=== PATIENT | female | born 1970 | race Caucasian/White ===

== ENCOUNTER 2017-02-01 18:21 | Emergency (ER) | payer OTHER ==
[~2017-02-01] VITALS: Ht 157.4 cm; Wt 141.1 kg
[~2017-02-01 18:21] MED LIST: AMOXICILLIN500 MG PO; ANTIVERT25 MG PO; AUGMENTIN 875 M1 TA1 PO; CIPRO500 MG PO; CLARITIN10 MG PO; CYCLOBENZAPRINE10 MG PO; DARVOCET N 1001 TAB PO; DAYPRO600 M1 PO; DIFLUCAN150 MG PO; FLEXERIL10 MG PO; HYDROCODONE BIT1 T11 PO; K + POTASSIUM20 MEQ PO; K-Dur 20MEQ20 MEQ PO; LASIX20 MG PO; LIPITOR10 MG PO; MACROBID100 M1 PO; MOTRIN600 MG PO; MOTRIN800 MG PO; Motrin,Rufen800 MG PO; NAPROSYN500 MG PO; NASONEX0.05 MG/AC NS; NKHM; PRILOSEC10 M1 PO; ROBAXIN750 MG PO; VICODIN 5/500 505 MG PO; VICODIN ES 7501 TAB PO; ZITHROMAX Z PA250 MG PO; Zofran4 MG PO
[2017-02-01] MEDS ORDERED: VITAMIN D350000 UNIT PO (18:28)
[2017-02-01] MEDS ORDERED: LISINOPRIL10 M1 PO (18:28)
[2017-02-01] MEDS ORDERED: ROBITUSSIN AC 110 ML PO (19:48)
[2017-02-01] MEDS ORDERED: ZITHROMAX250 MG PO ×2 (19:49→20:10)
== END 2017-02-01 20:04 | disposition home or self-care (01) ==
LOC: ED 18:21
DX: J06.9 Acute upper respiratory infection, unspecified (principal); Z91.040 Latex allergy status

== ENCOUNTER 2017-06-11 23:52 | Emergency (ER) | payer OTHER ==
[~2017-06-11] VITALS: Ht 157.4 cm; Wt 141.1 kg
[~2017-06-11 23:52] MED LIST changes: +LISINOPRIL10 M1 PO; +ROBITUSSIN AC 110 ML PO; +VITAMIN D350000 UNIT PO; +ZITHROMAX250 MG PO
[2017-06-12 00:39] LABS: BILIRUBIN NEGATIVE (NEGATIVE); BLOOD NEGATIVE (NEGATIVE); CLARITY SL CLOUDY (CLEAR); COLOR YELLOW (YELLOW); GLUCOSE NEGATIVE (NEGATIVE); KETONE NEGATIVE (NEGATIVE); LEUKO ESTERASE NEGATIVE (NEGATIVE); NITRITE NEGATIVE (NEGATIVE); PH 5.5 (5.0-9.0); SPECIFIC GRAVITY >= 1.030 (1.005-1.030); UROBILINOGEN 0.2 E.U./dl (0.2-1.0)
[2017-06-12 00:47] LABS: EPITHELIAL CELLS 45-50; WBC 0-2 wbc/hpf (0-5)
[2017-06-12 00:48] LABS: BACTERIA TRACE
[2017-06-12] MEDS ORDERED: PROAIR HFA8.5 GM INH (01:05)
[2017-06-12] MEDS ORDERED: MEDROL DOSEPAK4 MG PO (01:05)
== END 2017-06-12 01:34 | disposition home or self-care (01) ==
LOC: ED 23:52
PROVIDERS: Nurse Practitioner Family
DX: J40 Bronchitis, not specified as acute or chronic (principal); Z98.890 Other specified postprocedural states; Z79.899 Other long term (current) drug therapy; Z91.040 Latex allergy status

== ENCOUNTER 2017-11-06 20:26 | Emergency (ER) | payer OTHER ==
[~2017-11-06] VITALS: Ht 157.4 cm; Wt 136.1 kg
[~2017-11-06 20:26] MED LIST changes: +MEDROL DOSEPAK4 MG PO; +PROAIR HFA8.5 GM INH
[2017-11-06] MEDS ORDERED: LIPITOR20 MG PO (20:43)
[2017-11-06 20:55] LABS: BILIRUBIN NEGATIVE (NEGATIVE); BLOOD NEGATIVE (NEGATIVE); CLARITY SL CLOUDY (CLEAR); COLOR YELLOW (YELLOW); GLUCOSE NEGATIVE (NEGATIVE); KETONE NEGATIVE (NEGATIVE); LEUKO ESTERASE NEGATIVE (NEGATIVE); NITRITE NEGATIVE (NEGATIVE); PH 5.5 (5.0-9.0); SPECIFIC GRAVITY >= 1.030 (1.005-1.030); UROBILINOGEN 0.2 E.U./dl (0.2-1.0)
[2017-11-06 21:06] LABS: BASO # 0.1 10*3/uL (0.0-0.1); BASO % 0.5 % (0.0-1.0); EOS # 0.5 10*3/uL (0.0-0.4); EOS % 4.4 % (1.0-4.0); HEMATOCRIT 35.6 % (37.0-47.0); HEMOGLOBIN 10.9 g/dl (12.0-16.0); LYMPH # 1.9 10*3/uL (1.3-4.4); LYMPH % 17.1 % (27.0-41.0); MEAN CELL VOLUME 89.7 fl (81.0-99.0); MEAN CORPUSCULAR HGB 27.5 pg (27.0-31.0); MEAN CORPUSCULAR HGB CONC 30.6 g/dl (33.0-37.0); MEAN PLATELET VOLUME 11.1 fl (9.6-12.3); MONO # 0.6 10*3/uL (0.1-1.0); MONO % 5.9 % (3.0-9.0); NEUT # 7.8 10*3/uL (2.3-7.9); NEUT % 71.6 % (47.0-73.0); PLATELET COUNT AUTOMATED 264 10*3/uL (130-400); RED BLOOD COUNT 3.97 10*6/uL (4.10-5.10); RED CELL DISTRI WIDTH 16.6 % (0-14.5); WHITE BLOOD COUNT 10.9 10*3/uL (4.8-10.8)
[2017-11-06 21:06] LABS: BACTERIA 1+; EPITHELIAL CELLS 16-20; MUCOUS 1+
[2017-11-06 21:21] LABS: ALBUMIN 3.3 gm/dl (3.1-4.5); ALKALINE PHOSPHATASE 65 U/L (45-117); BUN 27 mg/dl (7-24); CHLORIDE 106 mmol/L (98-107); CREATININE 1.14 mg/dL (0.55-1.02); LIPASE 494 U/L (73-393); POTASSIUM 4.1 mmol/L (3.5-5.1); SGOT/AST 12 IU/L (3-35); SGPT/ALT 21 U/L (12-78); SODIUM 141 mmol/L (136-145); TOTAL PROTEIN 7.4 gm/dL (6.4-8.2)
[2017-11-06 21:23] LABS: B-hCG (QUALITATIVE) NEGATIVE (NEGATIVE)
[2017-11-06] MEDS ORDERED: ANAPROX DS550 MG PO (23:23)
== END 2017-11-06 23:47 | disposition home or self-care (01) ==
LOC: ED 20:26
PROVIDERS: Emergency Medicine Emergency Medical Services
DX: S29.011A Strain of muscle and tendon of front wall of thorax, initial encounter (principal); K80.20 Calculus of gallbladder without cholecystitis without obstruction; F17.200 Nicotine dependence, unspecified, uncomplicated; Z98.890 Other specified postprocedural states; Z79.899 Other long term (current) drug therapy; Z91.040 Latex allergy status; X58.XXXA Exposure to other specified factors, initial encounter; Y93.89 Activity, other specified; Y92.89 Other specified places as the place of occurrence of the external cause; Y99.9 Unspecified external cause status

== ENCOUNTER → 2017-11-09 | Outpatient (CLI) | payer OTHER ==
[~2017-11-09] MED LIST changes: +ANAPROX DS550 MG PO; +LIPITOR20 MG PO
== END | disposition home or self-care (01) ==
LOC: US 11-08 07:30
DX: K80.20 Calculus of gallbladder without cholecystitis without obstruction (principal); R10.9 Unspecified abdominal pain

== ENCOUNTER → 2018-09-18 | Outpatient (CLI) | payer OTHER ==
[~2018-09-18] MED LIST changes: +AUGMENTIN 875-875 MG PO
[2018-09-18 13:03] LABS: BILIRUBIN NEGATIVE (NEGATIVE); BLOOD NEGATIVE (NEGATIVE); CLARITY SL CLOUDY (CLEAR); COLOR YELLOW (YELLOW); GLUCOSE NEGATIVE (NEGATIVE); KETONE NEGATIVE (NEGATIVE); LEUKO ESTERASE NEGATIVE (NEGATIVE); NITRITE NEGATIVE (NEGATIVE); PH 5.5 (5.0-9.0); SPECIFIC GRAVITY >= 1.030 (1.005-1.030); UROBILINOGEN 0.2 E.U./dl (0.2-1.0)
[2018-09-18 13:20] LABS: BACTERIA 1+; EPITHELIAL CELLS 20-30; MUCOUS 1+
== END | disposition home or self-care (01) ==
LOC: RESCLI 01:58
PROVIDERS: Internal Medicine
DX: Z12.31 Encounter for screening mammogram for malignant neoplasm of breast (principal); K80.20 Calculus of gallbladder without cholecystitis without obstruction; R30.0 Dysuria; I16.0 Hypertensive urgency; E66.01 Morbid (severe) obesity due to excess calories; I10 Essential (primary) hypertension; R10.9 Unspecified abdominal pain; J30.2 Other seasonal allergic rhinitis; E78.5 Hyperlipidemia, unspecified; E55.9 Vitamin D deficiency, unspecified; I87.2 Venous insufficiency (chronic) (peripheral); M19.90 Unspecified osteoarthritis, unspecified site; Z91.040 Latex allergy status; Z76.89 Persons encountering health services in other specified circumstances; Z88.8 Allergy status to other drugs, medicaments and biological substances

== ENCOUNTER → 2018-10-16 | Outpatient (CLI) | payer OTHER ==
[~2018-10-16] MED LIST changes: +LISINOPRIL20 MG PO; +ROBAXIN500 M1 PO
== END | disposition home or self-care (01) ==
LOC: RESCLI 12:06
DX: I10 Essential (primary) hypertension (principal); J30.2 Other seasonal allergic rhinitis; E66.01 Morbid (severe) obesity due to excess calories; M19.90 Unspecified osteoarthritis, unspecified site; Z91.040 Latex allergy status; Z88.8 Allergy status to other drugs, medicaments and biological substances; Z79.899 Other long term (current) drug therapy

== ENCOUNTER 2018-12-09 10:23 | Emergency (ER) | payer OTHER ==
[~2018-12-09] VITALS: Ht 157.4 cm; Wt 131.1 kg
[~2018-12-09 10:23] MED LIST changes: -LISINOPRIL20 MG PO; -ROBAXIN500 M1 PO
[2018-12-09] MEDS ORDERED: LISINOPRIL20 MG PO (11:23)
[2018-12-09] MEDS ORDERED: MEDROL DOSEPAK4 MG PO (13:43)
[2018-12-09] MEDS ORDERED: NAPROSYN500 MG PO (13:43)
[2018-12-09] MEDS ORDERED: ROBAXIN500 M1 PO (13:43)
== END 2018-12-09 13:56 | disposition home or self-care (01) ==
LOC: ED 10:23
DX: S29.012A Strain of muscle and tendon of back wall of thorax, initial encounter (principal); I10 Essential (primary) hypertension; Z91.041 Radiographic dye allergy status; Z79.899 Other long term (current) drug therapy; Z76.0 Encounter for issue of repeat prescription; X58.XXXA Exposure to other specified factors, initial encounter; Y93.89 Activity, other specified; Y92.488 Other paved roadways as the place of occurrence of the external cause; Y99.8 Other external cause status

== ENCOUNTER → 2019-05-02 | Outpatient (CLI) | payer OTHER ==
[~2019-05-02] MED LIST changes: +LISINOPRIL20 MG PO; +ROBAXIN500 M1 PO
== END | disposition home or self-care (01) ==
LOC: RESCLI 12:03
DX: I10 Essential (primary) hypertension (principal); E66.01 Morbid (severe) obesity due to excess calories; E78.5 Hyperlipidemia, unspecified; E55.9 Vitamin D deficiency, unspecified; I87.2 Venous insufficiency (chronic) (peripheral); Z79.899 Other long term (current) drug therapy

== ENCOUNTER 2020-02-20 09:10 | Emergency (ER) | payer OTHER ==
[~2020-02-20] VITALS: Ht 157.4 cm; Wt 150.1 kg
[2020-02-20] MEDS ORDERED: TYLENOL325 M1 PO (10:11)
[2020-02-20] MEDS ORDERED: CYCLOBENZAPRINE10 MG PO (10:11)
[2020-02-20] MEDS ORDERED: NAPROSYN500 MG PO (10:11)
[2020-02-20] MEDS ORDERED: HYDR25T PO (10:23)
[2020-02-20] MEDS ORDERED: LISINOPRIL20 MG PO (10:23)
== END 2020-02-20 10:26 | disposition home or self-care (01) ==
LOC: ED 09:10
DX: M54.5 Low back pain (principal); Z91.040 Latex allergy status; Z79.899 Other long term (current) drug therapy

== ENCOUNTER 2020-04-12 12:31 | Inpatient (IN) | payer OTHER ==
[~2020-04-12] VITALS: Ht 157.4 cm
[~2020-04-12 12:31] MED LIST changes: +HYDR25T PO; +TYLENOL325 M1 PO
[2020-04-12 12:44] VITALS: BP 159/98
[2020-04-12 13:27] LABS: BASO # 0.1 10*3/uL (0.0-0.1); BASO % 0.6 % (0.0-1.0); EOS # 0.4 10*3/uL (0.0-0.4); EOS % 4.5 % (1.0-4.0); HEMATOCRIT 38.4 % (37.0-47.0); LYMPH # 1.2 10*3/uL (1.3-4.4); LYMPH % 13.7 % (27.0-41.0); MEAN CELL VOLUME 91.9 fl (81.0-99.0); MEAN CORPUSCULAR HGB 28.9 pg (27.0-31.0); MEAN CORPUSCULAR HGB CONC 31.5 g/dl (33.0-37.0); MEAN PLATELET VOLUME 10.9 fl (9.6-12.3); MONO # 0.5 10*3/uL (0.1-1.0); MONO % 5.9 % (3.0-9.0); NEUT # 6.6 10*3/uL (2.3-7.9); NEUT % 74.4 % (47.0-73.0); PLATELET COUNT AUTOMATED 231 10*3/uL (130-400); RED BLOOD COUNT 4.18 10*6/uL (4.10-5.10); RED CELL DISTRI WIDTH 15.3 % (0-14.5); WHITE BLOOD COUNT 8.8 10*3/uL (4.8-10.8)
[2020-04-12 13:44] LABS: ALBUMIN 3.3 gm/dl (3.1-4.5); ALKALINE PHOSPHATASE 60 U/L (45-117); BUN 18 mg/dl (7-24); CHLORIDE 109 mmol/L (98-107); CREATININE 1.04 mg/dL (0.55-1.02); LIPASE 127 U/L (73-393); POTASSIUM 3.9 mmol/L (3.5-5.1); SGOT/AST 7 IU/L (3-35); SGPT/ALT 26 U/L (12-78); SODIUM 142 mmol/L (136-145); TOTAL PROTEIN 7.3 gm/dL (6.4-8.2)
[2020-04-12 14:10] LABS: BETA-HCG, QUANT < 1.0 mIU/mL (1-3)
[2020-04-12 14:12] LABS: BILIRUBIN NEGATIVE (NEGATIVE); BLOOD NEGATIVE (NEGATIVE); CLARITY SL CLOUDY (CLEAR); COLOR YELLOW (YELLOW); GLUCOSE NEGATIVE (NEGATIVE); KETONE NEGATIVE (NEGATIVE); LEUKO ESTERASE TRACE (NEGATIVE); NITRITE NEGATIVE (NEGATIVE); UROBILINOGEN 0.2 E.U./dl (0.2-1.0)
[2020-04-12 14:41] VITALS: BP 132/52
[2020-04-12 14:41] LABS: BACTERIA 3+; CALCIUM OXALATE CRYSTALS 2+; EPITHELIAL CELLS 16-20
--- NOTE | 2020-04-12 14:41 | NUR ---
PT. STATED GI COCKTAIL HELPED BUT IT STILL FEELS LIKE FOOD IS STUCK IN HER THROAT.
[2020-04-12 16:00] VITALS: BP 147/91
--- NOTE | 2020-04-12 16:45 | NUR ---
Time: 1644 A 49 year old FEMALE admitted to 5E under services of MAYURI PICHARDO DO. Pt. arrived via wheel chair from ER. Chief complaint: ABDOMINAL PAIN PETRONA. EDELMIRA ALMENDAREZ
--- NOTE | 2020-04-12 17:40 | NUR ---
DR DOUGLAS NOTIFIED OF CONSULT, NEW ORDERS RECEIVED.
--- NOTE | 2020-04-12 18:06 | NUR ---
DR FAULKNER NOTIFIED OF UPDATED MED REC.
[2020-04-12 20:00] VITALS: BP 142/73
--- NOTE | 2020-04-12 20:00 | NUR ---
PATIENT VOICES NO COMPLAINTS. RESPIRATIONS EASY, NONLABORED. WILL CONTINUE TO MONTIOR.
[2020-04-13] VITALS (8 sets, daily range): BP systolic 129–170; BP diastolic 59–91
[2020-04-13 07:28] LABS: BASO % 0.4 % (0.0-1.0); EOS # 0.4 10*3/uL (0.0-0.4); EOS % 5.4 % (1.0-4.0); HEMATOCRIT 39.1 % (37.0-47.0); LYMPH # 1.4 10*3/uL (1.3-4.4); LYMPH % 17.7 % (27.0-41.0); MEAN CELL VOLUME 94.9 fl (81.0-99.0); MEAN CORPUSCULAR HGB 29.1 pg (27.0-31.0); MEAN CORPUSCULAR HGB CONC 30.7 g/dl (33.0-37.0); MEAN PLATELET VOLUME 11.9 fl (9.6-12.3); MONO # 0.5 10*3/uL (0.1-1.0); MONO % 6.4 % (3.0-9.0); NEUT # 5.3 10*3/uL (2.3-7.9); NEUT % 69.3 % (47.0-73.0); PLATELET COUNT AUTOMATED 188 10*3/uL (130-400); RED BLOOD COUNT 4.12 10*6/uL (4.10-5.10); RED CELL DISTRI WIDTH 15.7 % (0-14.5); WHITE BLOOD COUNT 7.6 10*3/uL (4.8-10.8)
[2020-04-13 07:42] LABS: BUN 17 mg/dl (7-24); CHLORIDE 108 mmol/L (98-107); CHOLESTEROL 197 mg/dL (<200); CREATININE 0.86 mg/dL (0.55-1.02); HDL CHOLESTEROL 27 mg/dl (40-60); POTASSIUM 4.1 mmol/L (3.5-5.1); SODIUM 138 mmol/L (136-145); TRIGLYCERIDES 435 mg/dl (<150)
[2020-04-13 08:35] LABS: VITAMIN D, 25-HYDROXY 36.2 ng/mL (30-100)
--- NOTE | 2020-04-13 11:46 | NUR ---
[employer] in to talk to patient. Patient states lives at HOME with AND KIDS. There are FEW steps in the home. Physician: [facility] Pharmacy: [facility] Home health services: NONE Patient's level of ADLs: INDEPENDENT Patient has working utilities: YES DME: [facility] Follow-up physician's appointment after d/c: WILL BE MADE BY HOSPITALIST NURSE DIRECTOR ON DISCHARGE Does patient want to access PORTAL?: NO Discharge plan PT LIVES AT HOME WITH HER FAMILY AND IS INDEPENDENT IN HER CARE. DENIES SHE WILL HAVE ANY NEEDS ON DISCHARGE. PLANS TO RETURN HOME WHEN MEDICALLY STABLE. WILL CONTINUE TO FOLLOW. STATES SHE WILL HAVE A RIDE HOME. EMILY GUALLPA
[2020-04-14] VITALS: BP 136/78
--- NOTE | 2020-04-14 00:15 | NUR ---
PATIENT RESTING IN BED, AWAKE&ALERT. VOICES NO COMPLAINTS. DISCUSSED PATIENTS POC. RESPIRATIONS EASY, NON LABORED. BED IN LOWEST POSITION,CALL LIGHT WITHIN REACH. WILL CONTINUE TO MONITOR.
[2020-04-14 08:00] VITALS: BP 139/79
[2020-04-14 12:00] VITALS: BP 128/61
--- NOTE | 2020-04-14 14:08 | NUR ---
PT CONTINUES TO DENY NEEDS AT HOME ON DISCHARGE. WILL RETURN HOME WHEN MEDICALLY STABLE.
[2020-04-14 16:00] VITALS: BP 135/60
[2020-04-14 20:00] VITALS: BP 153/78
[2020-04-15] VITALS (9 sets, daily range): BP systolic 119–181; BP diastolic 58–88
--- NOTE | 2020-04-15 04:00 | NUR ---
PATIENT SLEEPING, NO SIGNS OF DISTRESS. RESPIRATIONS EASY, NON LABORED. WILL CONTINUE TO MONITOR.
[2020-04-15 07:08] LABS: BUN 12 mg/dl (7-24); CHLORIDE 108 mmol/L (98-107); CREATININE 0.82 mg/dL (0.55-1.02); SODIUM 139 mmol/L (136-145)
--- NOTE | 2020-04-15 14:38 | NUR ---
PT HAVING LAP NE TODAY. DENIES NEEDS ON DISCHARGE. WILL CONTINUE TO FOLLOW.
--- NOTE | 2020-04-15 19:56 | NUR ---
PATIENT AWAKE, ALERT, REPORTS MILD PAIN TO UPPER ABDOMEN, DECLINES NEED FOR PAIN MEDS AT THIS TIME. PATIENT AMBULATORY TO SIT IN BEDSIDE CHAIR, CHATTING ON PHONE.
[2020-04-16] VITALS: BP 125/66
--- NOTE | 2020-04-16 05:52 | NUR ---
[facility] PROVIDED PER PT REQUEST FOR C/O 01/08 PAIN TO RLQ. PT REPORTS PASSING GAS.
[2020-04-16 08:00] VITALS: BP 116/71
[2020-04-16 12:00] VITALS: BP 130/64
--- NOTE | 2020-04-16 13:49 | NUR ---
RECEIVED CALL FROM DR. RAMIREZ INQUIRED TO HOW PATIENT TOLERATED LUNCH, PATIENT ATE 100 PERCENT OF LUNCH AND TOLERATED WELL, NOTIFIED DR. FAULKNER
--- NOTE | 2020-04-16 15:39 | NUR ---
Discharge instructions reviewed with patient/family. Patient receptive and verbalizes understanding. Follow-up care arranged. Written instructions given to patient/family. KAUSHAL GARCIA
== END 2020-04-16 14:48 | disposition home or self-care (01) | DRG 417 ==
LOC: ED 12:31 → EDHOLD 15:55 → 5E 15:55
PROVIDERS: Emergency Medicine; Internal Medicine; ADMIT Internal Medicine
PROC: 0DB68ZX Excision of Stomach, Via Natural or Artificial Opening Endoscopic, Diagnostic (ICD-10-PCS; principal; 2020-04-13)
PROC: 0FT44ZZ Resection of Gallbladder, Percutaneous Endoscopic Approach (ICD-10-PCS; 2020-04-16)
DX: K80.13 Calculus of gallbladder with acute and chronic cholecystitis with obstruction (principal); N17.0 Acute kidney failure with tubular necrosis; K29.50 Unspecified chronic gastritis without bleeding; M54.5 Low back pain; E87.8 Other disorders of electrolyte and fluid balance, not elsewhere classified; E83.41 Hypermagnesemia; I10 Essential (primary) hypertension; G89.29 Other chronic pain; K76.0 Fatty (change of) liver, not elsewhere classified; D72.9 Disorder of white blood cells, unspecified; R13.10 Dysphagia, unspecified; R09.89 Other specified symptoms and signs involving the circulatory and respiratory systems; R82.71 Bacteriuria; Z83.3 Family history of diabetes mellitus; Z82.49 Family history of ischemic heart disease and other diseases of the circulatory system; Z91.040 Latex allergy status; Z79.899 Other long term (current) drug therapy

== ENCOUNTER → 2020-05-05 | Outpatient (CLI) | payer OTHER | END | disposition home or self-care (01) | LOC: RESCLI 01:05 | DX: I10 Essential (primary) hypertension (principal); E55.9 Vitamin D deficiency, unspecified; J30.2 Other seasonal allergic rhinitis; E66.01 Morbid (severe) obesity due to excess calories; E78.5 Hyperlipidemia, unspecified; Z79.899 Other long term (current) drug therapy ==

== ENCOUNTER → 2021-10-10 | Outpatient (CLI) | payer SELFPAY | END | disposition home or self-care (01) | LOC: COVID19 16:51 | PROVIDERS: ATTEND Internal Medicine | DX: U07.1 COVID-19 (principal) ==

== ENCOUNTER 2022-02-07 05:48 | Inpatient (IN) | payer OTHER ==
[2022-02-07] VITALS (60 sets, daily range): BP systolic 135–235; BP diastolic 78–154
[~2022-02-07] VITALS: Ht 157.5 cm; Wt 145.8 kg
[2022-02-07 06:20] LABS: BASO # 0.1 10*3/uL (0.0-0.1); BASO % 0.6 % (0.0-1.0); EOS # 0.6 10*3/uL (0.0-0.4); EOS % 5.2 % (1.0-4.0); HEMATOCRIT 40.9 % (37.0-47.0); LYMPH # 1.2 10*3/uL (1.3-4.4); LYMPH % 10.7 % (27.0-41.0); MEAN CELL VOLUME 90.3 fl (81.0-99.0); MEAN CORPUSCULAR HGB 28.9 pg (27.0-31.0); MEAN PLATELET VOLUME 10.7 fl (9.6-12.3); MONO # 0.6 10*3/uL (0.1-1.0); MONO % 5.2 % (3.0-9.0); NEUT # 8.9 10*3/uL (2.3-7.9); NEUT % 77.6 % (47.0-73.0); PLATELET COUNT AUTOMATED 259 10*3/uL (130-400); RED BLOOD COUNT 4.53 10*6/uL (4.10-5.10); RED CELL DISTRI WIDTH 14.5 % (0-14.5); WHITE BLOOD COUNT 11.4 10*3/uL (4.8-10.8)
[2022-02-07 06:33] LABS: ALKALINE PHOSPHATASE 71 U/L (45-117); BUN 18 mg/dl (7-24); CHLORIDE 109 mmol/L (98-107); CREATININE 0.84 mg/dL (0.55-1.02); POTASSIUM 3.8 mmol/L (3.5-5.1); SGOT/AST 14 IU/L (3-35); SGPT/ALT 31 U/L (12-78); SODIUM 142 mmol/L (136-145); TOTAL PROTEIN 7.8 gm/dL (6.4-8.2)
[2022-02-08] VITALS (78 sets, daily range): BP systolic 134–218; BP diastolic 74–130
[2022-02-08 04:28] LABS: BASO # 0.1 10*3/uL (0.0-0.1); BASO % 0.4 % (0.0-1.0); EOS # 0.3 10*3/uL (0.0-0.4); EOS % 2.3 % (1.0-4.0); HEMATOCRIT 35.9 % (37.0-47.0); LYMPH # 0.9 10*3/uL (1.3-4.4); LYMPH % 7.6 % (27.0-41.0); MEAN CELL VOLUME 91.3 fl (81.0-99.0); MEAN CORPUSCULAR HGB 28.8 pg (27.0-31.0); MEAN CORPUSCULAR HGB CONC 31.5 g/dl (33.0-37.0); MONO # 0.6 10*3/uL (0.1-1.0); MONO % 5.2 % (3.0-9.0); NEUT # 10.4 10*3/uL (2.3-7.9); NEUT % 83.6 % (47.0-73.0); PLATELET COUNT AUTOMATED 247 10*3/uL (130-400); RED BLOOD COUNT 3.93 10*6/uL (4.10-5.10); WHITE BLOOD COUNT 12.4 10*3/uL (4.8-10.8)
[2022-02-08 04:50] LABS: ACT PARTIAL THROMBO TIME 25.1 SECONDS (20.0-32.1)
[2022-02-08 04:54] LABS: BUN 19 mg/dl (7-24); CHLORIDE 105 mmol/L (98-107); CHOLESTEROL 176 mg/dL (<200); CREATININE 0.89 mg/dL (0.55-1.02); POTASSIUM 3.5 mmol/L (3.5-5.1); SGOT/AST 15 IU/L (3-35); SGPT/ALT 29 U/L (12-78); SODIUM 140 mmol/L (136-145); TRIGLYCERIDES 213 mg/dl (<150)
[2022-02-08 04:55] LABS: ALKALINE PHOSPHATASE 63 U/L (45-117)
[2022-02-08 05:01] LABS: LDL CHOLESTEROL 105 mg/dL (9-159); THYROID STIM HORMONE (HS) 0.518 uIU/ml (0.358-4.75)
[2022-02-08 09:12] LABS: VITAMIN D, 25-HYDROXY 38.3 ng/mL (30-100)
[2022-02-09] VITALS: BP 188/105
[2022-02-09 00:45] VITALS: BP 152/90
[2022-02-09 04:00] VITALS: BP 157/96
[2022-02-09 05:38] LABS: BUN 18 mg/dl (7-24); CHLORIDE 105 mmol/L (98-107); CREATININE 0.86 mg/dL (0.55-1.02); POTASSIUM 3.3 mmol/L (3.5-5.1); SODIUM 139 mmol/L (136-145)
[2022-02-09 06:32] LABS: BASO # 0.1 10*3/uL (0.0-0.1); BASO % 0.7 % (0.0-1.0); EOS # 0.7 10*3/uL (0.0-0.4); EOS % 6.3 % (1.0-4.0); HEMATOCRIT 37.4 % (37.0-47.0); LYMPH # 1.5 10*3/uL (1.3-4.4); LYMPH % 14.3 % (27.0-41.0); MEAN CELL VOLUME 91.9 fl (81.0-99.0); MEAN CORPUSCULAR HGB 28.5 pg (27.0-31.0); MEAN PLATELET VOLUME 11.1 fl (9.6-12.3); MONO # 0.7 10*3/uL (0.1-1.0); MONO % 6.9 % (3.0-9.0); NEUT # 7.6 10*3/uL (2.3-7.9); NEUT % 70.9 % (47.0-73.0); PLATELET COUNT AUTOMATED 266 10*3/uL (130-400); RED BLOOD COUNT 4.07 10*6/uL (4.10-5.10); RED CELL DISTRI WIDTH 15.4 % (0-14.5); WHITE BLOOD COUNT 10.7 10*3/uL (4.8-10.8)
[2022-02-09 08:00] VITALS: BP 142/88
[2022-02-09 12:00] VITALS: BP 167/102
[2022-02-09 16:00] VITALS: BP 143/87
[2022-02-09] MEDS ORDERED: ATORVASTATIN CA40 M1 PO (16:39)
[2022-02-09] MEDS ORDERED: FUROSEMIDE40 MG PO (16:39)
[2022-02-09] MEDS ORDERED: LISINOPRIL20 MG PO (16:39)
== END 2022-02-09 18:06 | disposition home or self-care (01) | DRG 304 ==
LOC: ED 05:48 → ICCU 08:48 → EDHOLD 08:48 → ICCU 09:04 → 5E 02-09 13:07
PROVIDERS: Emergency Medicine; Internal Medicine; ADMIT Family Medicine; ATTEND Family Medicine
DX: I16.1 Hypertensive emergency (principal); J81.0 Acute pulmonary edema; R65.10 Systemic inflammatory response syndrome (SIRS) of non-infectious origin without acute organ dysfunction; M54.12 Radiculopathy, cervical region; E87.8 Other disorders of electrolyte and fluid balance, not elsewhere classified; R73.9 Hyperglycemia, unspecified; E83.41 Hypermagnesemia; I10 Essential (primary) hypertension; M54.50 Low back pain, unspecified; G89.29 Other chronic pain; M54.2 Cervicalgia; M47.9 Spondylosis, unspecified; F12.10 Cannabis abuse, uncomplicated; D64.9 Anemia, unspecified; E87.6 Hypokalemia; Z91.040 Latex allergy status; Z90.49 Acquired absence of other specified parts of digestive tract; Z98.891 History of uterine scar from previous surgery

== ENCOUNTER → 2022-02-21 | Outpatient (CLI) | payer OTHER ==
[~2022-02-21] MED LIST changes: +ATORVASTATIN CA40 M1 PO; +FUROSEMIDE40 MG PO
== END | disposition home or self-care (01) ==
LOC: RESCLI 01:18
PROVIDERS: ATTEND Internal Medicine
DX: R73.09 Other abnormal glucose (principal); I10 Essential (primary) hypertension; E55.9 Vitamin D deficiency, unspecified; E78.5 Hyperlipidemia, unspecified; E66.01 Morbid (severe) obesity due to excess calories; Z79.899 Other long term (current) drug therapy; Z90.49 Acquired absence of other specified parts of digestive tract; Z87.891 Personal history of nicotine dependence; Z88.8 Allergy status to other drugs, medicaments and biological substances

== ENCOUNTER → 2022-03-07 | Outpatient (CLI) | payer OTHER ==
[2022-03-07 17:38] LABS: ALKALINE PHOSPHATASE 81 U/L (45-117); BUN 22 mg/dl (7-24); CHLORIDE 110 mmol/L (98-107); CREATININE 1.13 mg/dL (0.55-1.02); POTASSIUM 4.1 mmol/L (3.5-5.1); SGOT/AST 9 IU/L (3-35); SGPT/ALT 29 U/L (12-78); SODIUM 143 mmol/L (136-145); TOTAL PROTEIN 7.5 gm/dL (6.4-8.2)
== END | disposition home or self-care (01) ==
LOC: RESCLI 03-06 04:59
PROVIDERS: Internal Medicine; ATTEND Internal Medicine
DX: I10 Essential (primary) hypertension (principal); R73.09 Other abnormal glucose; R25.2 Cramp and spasm; Z12.39 Encounter for other screening for malignant neoplasm of breast; E78.5 Hyperlipidemia, unspecified; E56.9 Vitamin deficiency, unspecified; Z79.899 Other long term (current) drug therapy

== ENCOUNTER → 2022-03-21 | Outpatient (CLI) | payer OTHER | END | disposition home or self-care (01) | LOC: RESCLI 01:23 | PROVIDERS: ATTEND Internal Medicine | DX: E66.01 Morbid (severe) obesity due to excess calories (principal); E78.5 Hyperlipidemia, unspecified; E55.9 Vitamin D deficiency, unspecified; I10 Essential (primary) hypertension; J30.2 Other seasonal allergic rhinitis; Z12.11 Encounter for screening for malignant neoplasm of colon; Z12.4 Encounter for screening for malignant neoplasm of cervix; R73.01 Impaired fasting glucose; E56.9 Vitamin deficiency, unspecified; R60.9 Edema, unspecified; Z79.899 Other long term (current) drug therapy; Z88.8 Allergy status to other drugs, medicaments and biological substances ==

== ENCOUNTER 2023-02-16 09:07 | Emergency (ER) | payer OTHER ==
[~2023-02-16] VITALS: Ht 157.4 cm; Wt 146.5 kg
[2023-02-16] MEDS ORDERED: CYCLOBENZAPRINE10 MG PO (11:14)
[2023-02-16] MEDS ORDERED: PREDNISONE50 MG PO (11:14)
== END 2023-02-16 11:30 | disposition home or self-care (01) ==
LOC: ED 09:07
DX: S39.012A Strain of muscle, fascia and tendon of lower back, initial encounter (principal); Z91.040 Latex allergy status; Z98.890 Other specified postprocedural states; X58.XXXA Exposure to other specified factors, initial encounter; Y93.89 Activity, other specified; Y92.89 Other specified places as the place of occurrence of the external cause; Y99.8 Other external cause status

== ENCOUNTER → 2023-06-28 | Outpatient (CLI) | payer OTHER ==
[~2023-06-28] MED LIST changes: +PREDNISONE50 MG PO
[2023-06-28 10:10] LABS: BASO # 0.1 10*3/uL (0.0-0.1); BASO % 0.8 % (0.0-1.0); EOS # 0.4 10*3/uL (0.0-0.4); EOS % 5.5 % (1.0-4.0); LYMPH # 1.1 10*3/uL (1.3-4.4); LYMPH % 14.8 % (27.0-41.0); MEAN CELL VOLUME 94.5 fl (81.0-99.0); MEAN CORPUSCULAR HGB 30.6 pg (27.0-31.0); MEAN CORPUSCULAR HGB CONC 32.4 g/dl (33.0-37.0); MEAN PLATELET VOLUME 11.2 fl (9.6-12.3); MONO # 0.5 10*3/uL (0.1-1.0); MONO % 6.6 % (3.0-9.0); NEUT # 5.5 10*3/uL (2.3-7.9); NEUT % 71.6 % (47.0-73.0); PLATELET COUNT AUTOMATED 232 10*3/uL (130-400); RED BLOOD COUNT 4.34 10*6/uL (4.10-5.10); RED CELL DISTRI WIDTH 13.8 % (0-14.5); WHITE BLOOD COUNT 7.6 10*3/uL (4.8-10.8)
[2023-06-28 10:40] LABS: POTASSIUM 4.4 mmol/L (3.4-5.1); TOTAL PROTEIN 7.2 gm/dL (6.0-8.0)
== END | disposition home or self-care (01) ==
LOC: RESCLI 08:20
PROVIDERS: Student in an Organized Health Care Education/Training Program; ATTEND Internal Medicine
DX: I10 Essential (primary) hypertension (principal); E55.9 Vitamin D deficiency, unspecified; E66.01 Morbid (severe) obesity due to excess calories; J30.2 Other seasonal allergic rhinitis; M19.90 Unspecified osteoarthritis, unspecified site; K42.9 Umbilical hernia without obstruction or gangrene; I87.2 Venous insufficiency (chronic) (peripheral); Z12.31 Encounter for screening mammogram for malignant neoplasm of breast; Z98.890 Other specified postprocedural states; Z90.49 Acquired absence of other specified parts of digestive tract; Z91.040 Latex allergy status; Z82.49 Family history of ischemic heart disease and other diseases of the circulatory system; Z88.8 Allergy status to other drugs, medicaments and biological substances; Z87.891 Personal history of nicotine dependence; Z79.899 Other long term (current) drug therapy

== ENCOUNTER 2024-04-16 11:42 | Emergency (ER) | payer OTHER ==
[~2024-04-16] VITALS: Ht 157.4 cm; Wt 161.0 kg
[2024-04-16] MEDS ORDERED: HYDROCHLOROTHIA25 M1 PO (11:53)
[2024-04-16] MEDS ORDERED: KLOR-CON 1010 ME1 PO (11:54)
[2024-04-16] MEDS ORDERED: Ketorolac Tromethamine 30 MG/ML VIAL IM ONE (15:45)
[2024-04-16] MEDS ORDERED: NAPROSYN500 MG PO (15:46)
[2024-04-16] MEDS ORDERED: VIBRAMYCIN100 MG PO (15:47)
== END 2024-04-16 15:53 | disposition home or self-care (01) ==
LOC: ED 11:42
DX: L03.115 Cellulitis of right lower limb (principal); M25.571 Pain in right ankle and joints of right foot; M79.671 Pain in right foot; Z91.048 Other nonmedicinal substance allergy status; Z91.040 Latex allergy status; Z79.899 Other long term (current) drug therapy; Z90.49 Acquired absence of other specified parts of digestive tract; Z98.890 Other specified postprocedural states

== ENCOUNTER → 2024-05-26 | Outpatient (CLI) | payer OTHER ==
[~2024-05-26] MED LIST changes: +HYDROCHLOROTHIA25 M1 PO; +KLOR-CON 1010 ME1 PO; +VIBRAMYCIN100 MG PO
== END | disposition home or self-care (01) ==
LOC: MAMMO 08:25
PROVIDERS: ATTEND Family Medicine
DX: Z12.31 Encounter for screening mammogram for malignant neoplasm of breast (principal)

== ENCOUNTER 2025-03-01 09:37 | Emergency (ER) | payer OTHER ==
[~2025-03-01] VITALS: Ht 157.4 cm; Wt 151.0 kg
[2025-03-01] MEDS ORDERED: methylPREDNISolone sod succ 125 MG VIAL IM ONE (09:55)
[2025-03-01] MEDS ORDERED: Water, Sterile 10 ML VIAL ONE (10:23)
[2025-03-01] MEDS ORDERED: BROMFED DM COU118 M2 PO (11:04)
[2025-03-01] MEDS ORDERED: MEDROL DOSEPAK4 MG PO (11:04)
== END 2025-03-01 11:17 | disposition home or self-care (01) ==
LOC: ED 09:37
DX: J40 Bronchitis, not specified as acute or chronic (principal); Z20.822 Contact with and (suspected) exposure to COVID-19; R03.0 Elevated blood-pressure reading, without diagnosis of hypertension; I10 Essential (primary) hypertension; E66.9 Obesity, unspecified; Z91.040 Latex allergy status; Z91.048 Other nonmedicinal substance allergy status; Z79.899 Other long term (current) drug therapy; Z98.890 Other specified postprocedural states; Z90.49 Acquired absence of other specified parts of digestive tract; Z68.30 Body mass index [BMI] 30.0-30.9, adult

== ENCOUNTER → 2025-06-11 | Outpatient (CLI) | payer OTHER ==
[~2025-06-11] MED LIST changes: +BROMFED DM COU118 M2 PO
== END ==
LOC: RAD 09:30
PROVIDERS: ATTEND Family Medicine
DX: M17.11 Unilateral primary osteoarthritis, right knee (principal); M25.561 Pain in right knee; Z12.31 Encounter for screening mammogram for malignant neoplasm of breast

== ENCOUNTER → 2025-06-27 | Outpatient (CLI) | payer OTHER | END | disposition home or self-care (01) | LOC: US 02:04 | PROVIDERS: ATTEND Family Medicine | DX: K83.8 Other specified diseases of biliary tract (principal); K76.0 Fatty (change of) liver, not elsewhere classified; Z98.890 Other specified postprocedural states; Z90.49 Acquired absence of other specified parts of digestive tract ==

== ENCOUNTER 2025-08-20 11:01 | Emergency (ER) | payer OTHER ==
[~2025-08-20] VITALS: Ht 157.4 cm; Wt 139.3 kg
[2025-08-20] MEDS ORDERED: GABAPENTIN100 M2 PO (11:21)
[2025-08-20] MEDS ORDERED: LISINOPRIL40 MG PO (11:21)
[2025-08-20] MEDS ORDERED: AMLODIPINE BESYL5 MG PO (11:22)
[2025-08-20] MEDS ORDERED: METFORMIN HYD1000 MG PO (11:23)
[2025-08-20] MEDS ORDERED: LASIX40 MG PO (11:24)
[2025-08-20] MEDS ORDERED: LANTUS SOL100 UNIT/1 SC (11:27)
[2025-08-20] MEDS ORDERED: Acetaminophen/Oxycodone 5 MG/325 MG TABLET PO ONE (11:45)
== END 2025-08-20 13:41 | disposition home or self-care (01) ==
LOC: ED 11:01
DX: S93.402A Sprain of unspecified ligament of left ankle, initial encounter (principal); E11.42 Type 2 diabetes mellitus with diabetic polyneuropathy; Z91.040 Latex allergy status; Z79.899 Other long term (current) drug therapy; Z79.84 Long term (current) use of oral hypoglycemic drugs; Z79.4 Long term (current) use of insulin; Z90.49 Acquired absence of other specified parts of digestive tract; Z98.890 Other specified postprocedural states; X50.1XXA Overexertion from prolonged static or awkward postures, initial encounter; Y93.89 Activity, other specified; Y92.810 Car as the place of occurrence of the external cause; Y99.8 Other external cause status